=== PATIENT | male | born 1965 | race Caucasian/White ===

== ENCOUNTER → 2016-06-13 | Outpatient (CLI) | payer OTHER ==
[~2016-06-13] MED LIST: FISHOIL PO; LORA5SYP7 PO
[2016-06-13 13:33] LABS: BASO % 0.5 %; BASO ABS # 0.03 K/uL (0-0.2); COMPLETE YES; EOS % 1.6 %; HEMATOCRIT 40.7 % (42-52); LYMPH % 39.8 %; LYMPH ABS # 2.26 K/uL (1.2-3.4); MEAN CELL VOLUME 92.5 fL (80-100); MEAN CORPUSCULAR HEMOGLOBIN 32.3 pg (25-34); MEAN CORPUSCULAR HGB CONC 34.9 g/dl (32-36); MEAN PLATELET VOLUME 9.9 fL (7.4-10.4); MONO % 12.1 %; PLATELET COUNT 205 K/uL (130-400); WHITE BLOOD COUNT 5.68 K/uL (4.8-10.8)
[2016-06-13 14:14] LABS: CALCIUM 9.6 mg/dl (8.5-10.1)
[2016-06-13 14:22] LABS: ALT/SGPT 49 U/L (12-78); AST/SGOT 35 U/L (15-37); BLOOD UREA NITROGEN 29 mg/dl (7-18); BUN/CREATININE RATIO 26.6 (10-20); CARBON DIOXIDE 28 mmol/L (21-32); CHLORIDE 103 mmol/L (98-107); CHOLESTEROL 180 mg/dl (0-200); GLUCOSE 90 mg/dl (70-99); POTASSIUM 4.2 mmol/L (3.5-5.1); SODIUM 138 mmol/L (136-145); TRIGLYCERIDES 43 mg/dl (0-150); VERY LOW DENSITY LIPOPROT CALC 9 mg/dl
[2016-06-13 14:32] LABS: ALB/GLOB RATIO 1.4 (0.9-2); ALKALINE PHOSPHATASE 67 U/L (45-117); CHOLESTEROL/HDL RATIO 2.4; HDL CHOLESTEROL 76 mg/dl; LDL CHOLESTEROL CALCULATED 95 mg/dl; PROSTATE SPECIFIC ANTIGEN 0.789 ng/ml (0.000-4.000)
== END | disposition home or self-care (01) ==
LOC: C.LABBC 09:19
PROVIDERS: ATTEND Internal Medicine
DX: Z11.59 Encounter for screening for other viral diseases (principal); R35.0 Frequency of micturition; M54.9 Dorsalgia, unspecified; Z13.220 Encounter for screening for lipoid disorders; Z13.29 Encounter for screening for other suspected endocrine disorder; Z86.711 Personal history of pulmonary embolism

== ENCOUNTER 2019-12-06 22:48 | Observation (INO) ==
--- OUTSIDE RECORDS SUMMARY | 2019-12-06 22:51 | External Medical Summary | Continuity of Care Document ---
:1965 Author Name Teo Maceknzie Address Unavailable Unavailable , Care Team Providers Name Role Phone Unavailable Unavailable Unavailable RHINA QURESHI M.D., V Unavailable Unavailab le Unavailable Unavailable Unavailable Problems Allergy (995.3) (T78.40XA) History of Acute deep vein thrombosis of distal leg (453.42) (I82.4Z9) Status: Resolved Encounter for screening for lipoid disorders (V77.91) (Z13.2 20) Screening for diabetes mellitus (V77.1) (Z13.1) History of pulmonary embolism (V12.55) (Z86.711) Status: Resolved Backache (724.5) (M54.9) Allergic rhinitis (477.9) (J30.9) Urinary frequency (788.41) (R35.0) Prostate cancer screening (V76.44) (Z12.5) Thyroid disorder screen (V77.0) (Z13.29) Colon cancer screening (V76.51) (Z12.11) First degree atrioventricular block (426.11) (I44.0) Left ventricular hypertrophy (429.3) (I51.7) Allergies and Adverse Reactions No Known Drug Allergies (Allergy) Medications Aspirin 81 MG TABS; TAKE 1 TABLET DAILY. , M.D. Start: 28-Apr-2013 Refills: 0 Fish Oil 1000 MG Oral Capsule; TAKE 1 CAPSULE DAILY. , M.D. Refills: 0 Glucosamine-Chondroitin DS TABS; Take 1 tablet daily , M.D. Refills: 0 [facility] Loratadine 10 MG TABS; TAKE 1 TABLET DAILY. , M.D. Refills: 0 Procedures History of Shoulder Surgery Status: Comp leted Immunizations Influenza On: 28-Dec-2011 0:00 Influenza On: 21-Nov-2014 9:55 Lot #: [id number], SANOFI PASTEUR Tdap (Adacel) On: 21-Nov-2014 9:56 Lot #: [id number], SANOFI PASTEUR Flulaval Quadrivalent 0.5 ML Intramuscular Suspension Prefilled Syringe On: 05-Jan-2018 Family History Father Family history of Acute Myocardial Infarction (V17.3) Status : Active Mother Family history of Acute Myocardial Infarction (V17.3) Status : Active Social History - Smoking Status Never smoked tobacco Plan of Treatment Planned Observations Planned Goals not documented Results No Known Results Results not documented
--- NOTE | 2019-12-06 23:13 | Emergency Department Note ---
Impression & Plan Bilateral pulmonary embolism ED Provider Note Name: ERIKA RICHTER Age: 54 Sex: M Arrives Via: Ambulance Informant: Patient, ED Provider: Jose Hidalgo MD Chief Complaint: Left Shoulder Pain Impression: Bilateral Pulmonary Embolism Medical Decision Makin male with history of DVT/PE 10 years ago felt to be provoked arrives with left flank pain and left shoulder pain now completely resolved. EKG with diffuse T wave inversions similar to previous EKGs. CXR negative. Exam is completely benign on arrival though unusual presentation for just MSK pain (though did recently go horseback riding). Labs obtained which reveal elevated Dimer. Normal Trop and other labs unremarkable. CT A Done given history with elevated dimer. This revealed extensive bilateral PEs with possible infiltrate vs infarct. With concerns infiltrate in setting of diffuse PE, I did opt to test for Covid-19 which was fortunately negative. Extensive Hypercoag work-up sent. Patient agreeable to anticoagulation and heparin started IV. US bilateral leg obtained also reveals left calf DVT, though I will note on exam there is no swelling nor calf tenderness. This is a unprovoked DVT as no recent reason currently comes to his mind that would have lead to this. Triage/Nursing Notes reviewed by Me Additional history obtained from Differentials:Cardiac ischemia, aortic dissection, pulmonary embolism, pneumothorax, pneumonia, pericarditis, myocarditis, esophageal rupture, GERD, cholecystitis, pancreatitis, musculoskeletal, as well as other pathologies. Vital Signs: reviewed and remarkable for no significant abnormalities Interventions: NSS Bolus, Heparin bolus/gtt Labs:Reviewed and remarkable for elevated Dimer Imaging: [facility] Radiologist interpretation reviewed by me: "CTA CHEST: Multiple filling defects within right upper and bilateral lower lobe segmental and subsegmental branches, consistent with pulmonary emboli. Additional pulmonary embolus in the left upper lobe branch. No large saddle embolus. Mildly ectatic descending thoracic aorta measuring 3.8 cm is in diameter. No definite aortic dissection though contrast bolus through the thoracic aorta is suboptimal. Mild cardiomegaly. No intrathoracic lymphadenopathy. Mild left basilar infiltrate with small left pleural effusion. 11 mm right basilar nodule versus focus of consolidation along the hemidiaphragm. Radiologist: Justyn Andrade M.D." EKG:Per My Interpretation: Indication Left chest pain: NSR 63 bpm, qtc 411. No Ectopy. Diffuse T wave inversions with LV Hypertrophy. Compared to EKG June 04, 2019 and 08/07/11, no significant changes. Cardiac/Tele Monitoring: Cardiac Monitoring: An Order was placed for continuous cardiac monitoring. The monitor shows a rate of 60 with a normal sinus rhythm. Consults:Dr Wilkinson - JENN[facility] Hospitalist Plan: Disposition:Hospitalization. Condition: Good Prescriptions:none PDMP: n/a History of Present Illness:54 male arrives for evaluation of left chest pain. Patient notes he was having periodic mild left flank discomfort (03/05) over the last few day. Attributed it to mountain biking and horse back riding. He was going to bed tonight when he developed pressure like left shoulder pain. Radiated to left upper chest. Tight in nature. No other radiation. No nausea, vomiting, palpitations, diaphoresis, shortness of breath, syncope, nor other symptoms. Denies previous symptoms like this. Notes History of LVH and abnormal EKG but no previous cardiac issues otherwise. He took ASA 324mg PO. Pain is currently resolved. No trauma nor injury. Nothing made pain better nor worse. Denies pain with inspiration. History of DVT left leg of unknown etiology other than possibly the high boots he was wearing at that time 10 yrs ago. ROS: See above HPI for pertinent positives & negatives. A total of 10 systems reviewed and were otherwise negative. 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 . Does regular high energy exertion (12+ hr bike rides) Home Medications:Loratadine, ASA 81mg Daily Allergies:None Vitals:Blood Pressure: 115/82, Pulse 63, RR 20, T 37.6C, O2 95% on RA Physical Exam: GENERAL: Patient is well appearing and in no acute distress. EYES: No scleral icterus, unremarkable pupils. ENT: Mucous membranes moist, no nasal congestion. NECK: No masses appreciated, nomeningismus, trachea is midline. RESPIRATORY: No dyspnea. Clear to auscultation and equal bilaterally. No wheeze, no rhonchi. CARDIOVASCULAR: Regular rate and rhythm.No murmurs, rubs, gallops appreciated. GASTROINTESTINAL: Abdomen soft, non-tender, no peritonitis.Bowel sounds positive.No masses appreciated. BACK: No midline tenderness, no CVA tenderness EXTREMITIES: Normal motion all extremities, no cyanosis, no edema. NEUROLOGIC: Alert and oriented, no acute motor or sensory deficits, no focal weakness, cranial nerves grossly intact. SKIN: No rash, no jaundice, no diaphoresis. PSYCH: Appropriate GCS: 15 ED Course: Times/Reassessments: Multiple, stable, no symptoms, vitals stable Critical Care: I have personally spent 35 minutes of critical care time in the direct management of this patient. Extensive Pulmonary embolisms bilaterally requiring IV heparin. This was a life/limb threatening event. This 35 minutes is in excess of all separately billable procedures. 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 Current Living Situation: Spouse Feels Safe at Home: Yes Safety Concerns: Feels Safe At This Time Assistive Devices: None Allergies Allergies Allergy/AdvReac Type Severity Reaction Status Date / Time No Known Allergies Allergy Unverified 12/07/19 00:22 Home Meds Home Medications Medication Instructions Recorded Confirmed aspirin [Aspir-Low] 81 mg PO DAILY 12/07/19 12/07/19 loratadine [Claritin RediTabs] 5 mg PO DAILY PRN 12/07/19 12/07/19 Results & Data (ED) Vital Signs Vital Signs - 24 hr 12/06/19 23:00 12/06/19 23:31 12/07/19 00:00 Temperature 37.6 C H Temperature Source Oral Pulse Rate 65 64 63 Pulse Rate from SpO2 Sensor 65 62 Respiratory Rate 19 12 12 Respiratory Effort / Characteristics Non-Labored Spontaneous Respiratory Depth Normal Blood Pressure 138/103 H 115/83 121/81 Blood Pressure Mean 114 90 96 Pulse Oximetry 97 99 97 Oxygen Delivery Method Room Air Room Air Room Air Sepsis New/Unexplained Change in Mental Status N/A Sepsis Action Taken by Nursing No Action Required 12/07/19 00:30 12/07/19 01:01 12/07/19 01:30 Temperature Temperature Source Pulse Rate 63 66 69 Pulse Rate from SpO2 Sensor 63 67 69 Respiratory Rate 21 21 22 Respiratory Effort / Characteristics Respiratory Depth Blood Pressure 126/78 134/86 137/82 Blood Pressure Mean 91 113 94 Pulse Oximetry 100 100 98 Oxygen Delivery Method Room Air Room Air Room Air Sepsis New/Unexplained Change in Mental Status Sepsis Action Taken by Nursing 12/07/19 02:00 12/07/19 02:30 12/07/19 03:01 Temperature Temperature Source Pulse Rate 69 68 67 Pulse Rate from SpO2 Sensor 69 68 70 Respiratory Rate 19 24 16 Respiratory Effort / Characteristics Respiratory Depth Blood Pressure 133/81 133/79 123/83 Blood Pressure Mean 91 83 91 Pulse Oximetry 97 97 96 Oxygen Delivery Method Room Air Room Air Room Air Sepsis New/Unexplained Change in Mental Status Sepsis Action Taken by Nursing Laboratory Data Result diagrams: 12/06/19 22:40 12/06/19 22:40 Lab Results 12/06/19 12/06/19 12/06/19 Range/Units 22:40 22:40 22:40 WBC 9.64 (4.8-10.8) K/uL RBC 4.50 L (4.7-6.1) M/uL Hgb 14.6 (14.0-18.0) g/dL Hct 42.0 (42-52) % MCV 93.3 (80-100) fL MCH 32.4 (25-34) pg MCHC 34.8 (32-36) g/dL RDW Std Deviation 41.3 (36.4-46.3) fL RDW Coeff of Yaz 12.3 (11.5-14.5) % Plt Count 211 (130-400) K/uL MPV 9.2 (7.4-10.4) fL Immature Gran % (Auto) 0.1 % Neut % (Auto) 54.3 % Lymph % (Auto) 29.5 % [place] % (Auto) 13.9 % Eos % (Auto) 1.9 % Baso % (Auto) 0.3 % Neut # (Auto) 5.24 (1.4-6.5) K/uL Lymph # (Auto) 2.84 (1.2-3.4) K/uL [place] # (Auto) 1.34 H (0.11-0.59) K/uL Eos # (Auto) 0.18 (0-0.5) K/uL Baso # (Auto) 0.03 (0-0.2) K/uL Immature Gran # (Auto) 0.01 (0.00-0.02) K/uL APTT (21.0-31.0) Seconds PTT Ratio D-Dimer 2010 H* (0-500) ug/L FEU Sodium 139 (136-145) mmol/L Potassium 3.9 (3.5-5.1) mmol/L Chloride 104 (98-107) mmol/L Carbon Dioxide 30 (21-32) mmol/L Anion Gap 5.0 (3-11) BUN 25 H (7-18) mg/dl Creatinine 1.21 (0.6-1.4) mg/dl Est Cr Clr Drug Dosing 63.0 ml/min Est GFR ( Amer) 78.2 Est GFR (Non-Af Amer) 67.5 BUN/Creatinine Ratio 20.3 H (10-20) Glucose 92 (70-99) mg/dl Calcium 9.4 (8.5-10.1) mg/dl Total Bilirubin 0.4 (0.2-1) mg/dl Direct Bilirubin 0.2 (0-0.2) mg/dl AST 22 (15-37) U/L ALT 32 (12-78) U/L Alkaline Phosphatase 86 (45-117) U/L Troponin I < 0.015 (0-0.045) ng/ml Total Protein 7.5 (6.4-8.2) gm/dl Albumin 3.8 (3.4-5.0) gm/dl Lipase 136 (73-393) U/L Urine Color Urine Appearance (Clear) Urine pH (4.5-7.5) Ur Specific [place] (1.000-1.030) Urine Protein (Negative) Urine Glucose (UA) (Negative) Urine Ketones (Negative) Urine Blood (Negative) Urine Nitrite (Negative) Urine Bilirubin (Negative) Urine Urobilinogen (Negative) Ur Leukocyte Esterase (Negative) COVID-19 Eval Order COVID-19 PCR (Negative) 12/06/19 12/06/19 12/07/19 Range/Units 22:40 23:54 01:01 WBC (4.8-10.8) K/uL RBC (4.7-6.1) M/uL Hgb (14.0-18.0) g/dL Hct (42-52) % MCV (80-100) fL MCH (25-34) pg MCHC (32-36) g/dL RDW Std Deviation (36.4-46.3) fL RDW Coeff of Yaz (11.5-14.5) % Plt Count (130-400) K/uL MPV (7.4-10.4) fL Immature Gran % (Auto) % Neut % (Auto) % Lymph % (Auto) % [place] % (Auto) % Eos % (Auto) % Baso % (Auto) % Neut # (Auto) (1.4-6.5) K/uL Lymph # (Auto) (1.2-3.4) K/uL [place] # (Auto) (0.11-0.59) K/uL Eos # (Auto) (0-0.5) K/uL Baso # (Auto) (0-0.2) K/uL Immature Gran # (Auto) (0.00-0.02) K/uL APTT 26.3 (21.0-31.0) Seconds PTT Ratio 0.9 D-Dimer (0-500) ug/L FEU Sodium (136-145) mmol/L Potassium (3.5-5.1) mmol/L Chloride (98-107) mmol/L Carbon Dioxide (21-32) mmol/L Anion Gap (3-11) BUN (7-18) mg/dl Creatinine (0.6-1.4) mg/dl Est Cr Clr Drug Dosing ml/min Est GFR ( Amer) Est GFR (Non-Af Amer) BUN/Creatinine Ratio (10-20) Glucose (70-99) mg/dl Calcium (8.5-10.1) mg/dl Total Bilirubin (0.2-1) mg/dl Direct Bilirubin (0-0.2) mg/dl AST (15-37) U/L ALT (12-78) U/L Alkaline Phosphatase (45-117) U/L Troponin I (0-0.045) ng/ml Total Protein (6.4-8.2) gm/dl Albumin (3.4-5.0) gm/dl Lipase (73-393) U/L Urine Color Yellow Urine Appearance Clear (Clear) Urine pH 6.0 (4.5-7.5) Ur Specific [place] 1.007 (1.000-1.030) Urine Protein Negative (Negative) Urine Glucose (UA) Negative (Negative) Urine Ketones Negative (Negative) Urine Blood Negative (Negative) Urine Nitrite Negative (Negative) Urine Bilirubin Negative (Negative) Urine Urobilinogen Negative (Negative) Ur Leukocyte Esterase Negative (Negative) COVID-19 Eval Order Covid19 Done at [facility] COVID-19 PCR (Negative) 12/07/19 Range/Units 01:01 WBC (4.8-10.8) K/uL RBC (4.7-6.1) M/uL Hgb (14.0-18.0) g/dL Hct (42-52) % MCV (80-100) fL MCH (25-34) pg MCHC (32-36) g/dL RDW Std Deviation (36.4-46.3) fL RDW Coeff of Yaz (11.5-14.5) % Plt Count (130-400) K/uL MPV (7.4-10.4) fL Immature Gran % (Auto) % Neut % (Auto) % Lymph % (Auto) % [place] % (Auto) % Eos % (Auto) % Baso % (Auto) % Neut # (Auto) (1.4-6.5) K/uL Lymph # (Auto) (1.2-3.4) K/uL [place] # (Auto) (0.11-0.59) K/uL Eos # (Auto) (0-0.5) K/uL Baso # (Auto) (0-0.2) K/uL Immature Gran # (Auto) (0.00-0.02) K/uL APTT (21.0-31.0) Seconds PTT Ratio D-Dimer (0-500) ug/L FEU Sodium (136-145) mmol/L Potassium (3.5-5.1) mmol/L Chloride (98-107) mmol/L Carbon Dioxide (21-32) mmol/L Anion Gap (3-11) BUN (7-18) mg/dl Creatinine (0.6-1.4) mg/dl Est Cr Clr Drug Dosing ml/min Est GFR ( Amer) Est GFR (Non-Af Amer) BUN/Creatinine Ratio (10-20) Glucose (70-99) mg/dl Calcium (8.5-10.1) mg/dl Total Bilirubin (0.2-1) mg/dl Direct Bilirubin (0-0.2) mg/dl AST (15-37) U/L ALT (12-78) U/L Alkaline Phosphatase (45-117) U/L Troponin I (0-0.045) ng/ml Total Protein (6.4-8.2) gm/dl Albumin (3.4-5.0) gm/dl Lipase (73-393) U/L Urine Color Urine Appearance (Clear) Urine pH (4.5-7.5) Ur Specific [place] (1.000-1.030) Urine Protein (Negative) Urine Glucose (UA) (Negative) Urine Ketones (Negative) Urine Blood (Negative) Urine Nitrite (Negative) Urine Bilirubin (Negative) Urine Urobilinogen (Negative) Ur Leukocyte Esterase (Negative) COVID-19 Eval Order COVID-19 PCR NEGATIVE (Negative) Administered Medications Heparin Sodium/Dextrose (Heparin Sodium/Dextrose) 25,000 units in 500 mls @ 24 mls/hr IV .[id number] [facility]; Protocol Stop: 01/06/20 01:44 Last Admin: 12/07/19 02:18 Dose: 1,200 units/hr, 24 mls/hr Documented by: [id number] Cosigned by: [id number] Discontinued Medications Heparin Sodium (Porcine) (Heparin Sod 5,000 Unit/0.5 Ml Vial) Confirm Administered Dose 5,000 units .ROUTE .STK-MED ONE Stop: 12/07/19 02:11 Last Admin: 12/07/19 02:18 Dose: 5,000 units Documented by: [id number] Cosigned by: [id number] Heparin Sodium/Dextrose (Heparin Iv Standard With Bolus) 1 ea IV NOW STA; P rotocol Stop: 12/07/19 01:39 Last Admin: 12/07/19 02:18 Dose: Not Given Documented by: [id number] Sodium Chloride (Nss 1000ml) 1,000 mls @ 999 mls/hr IV .Q1H1M ONE Stop: 12/07/19 00:49 Last Infusion: 12/07/19 02:15 Dose: 0 mls/hr Documented by: [id number] Admin: 12/07/19 00:17 Dose: 999 mls/hr Documented by: [id number] Ioversol (Optiray 320 125ml) 125 ml IV ONCE ONE Stop: 12/07/19 00:22 Last Admin: 12/07/19 00:21 Dose: 109 ml Documented by: [id number] Discharge Plan Visit Data Chief Complaint: Shoulder Pain Stated Complaint: CARDIAC SYMPTOMS ED Provider: Jose Hidalgo Discharge Problem: Bilateral pulmonary embolism Patient Disposition: Admitted As Inpatient Discharge Instructions Interventions: ED Discharge Assessment Last Done: 12/07/19 04:00
[2019-12-06 23:33] LABS: Basophils # (auto) 0.03 K/uL (0-0.2); Basophils % (auto) 0.3 %; Eosinophils # (auto) 0.18 K/uL (0-0.5); Eosinophils % (auto) 1.9 %; Hemoglobin 14.6 g/dL (14.0-18.0); Immature Granulocytes # (auto) 0.01 K/uL (0.00-0.02); Immature Granulocytes % (auto) 0.1 %; Lymphocytes # (auto) 2.84 K/uL (1.2-3.4); Lymphocytes % (auto) 29.5 %; Mean Corpuscular Hemoglobin 32.4 pg (25-34); Mean Corpuscular Hgb Conc 34.8 g/dL (32-36); Mean Corpuscular Volume 93.3 fL (80-100); Mean Platelet Volume 9.2 fL (7.4-10.4); Monocytes # (auto) 1.34 K/uL (0.11-0.59); Monocytes % (auto) 13.9 %; Neutrophils # (auto) 5.24 K/uL (1.4-6.5); Neutrophils % (auto) 54.3 %; Platelet Count 211 K/uL (130-400); RDW Coefficient of Variation 12.3 % (11.5-14.5); RDW Standard Deviation 41.3 fL (36.4-46.3); White Blood Count 9.64 K/uL (4.8-10.8)
[2019-12-06 23:41] LABS: Alanine Aminotransferase 32 U/L (12-78); Albumin Level 3.8 gm/dl (3.4-5.0); Aspartate Aminotransferase 22 U/L (15-37); BUN Creatinine Ratio 20.3 (10-20); Bilirubin Direct 0.2 mg/dl (0-0.2); Blood Urea Nitrogen 25 mg/dl (7-18); Calcium 9.4 mg/dl (8.5-10.1); Carbon Dioxide 30 mmol/L (21-32); Chloride 104 mmol/L (98-107); Est GFR (African American) 78.2; Est GFR (Non-African American) 67.5; Glucose 92 mg/dl (70-99); Lipase 136 U/L (73-393); Potassium 3.9 mmol/L (3.5-5.1); Sodium 139 mmol/L (136-145)
[2019-12-06 23:45] LABS: Alkaline Phosphatase 86 U/L (45-117); Bilirubin,Total 0.4 mg/dl (0.2-1); Total Protein 7.5 gm/dl (6.4-8.2); Troponin I < 0.015 ng/ml (0-0.045)
[2019-12-06 23:48] LABS: D Dimer 2010 ug/L FEU (0-500)
[2019-12-06] MEDS ORDERED: SODIUM CHLORIDE 0.9% 1000ML 1,000 ML IV ONE (23:49)
[2019-12-07] MEDS ORDERED: OPTIRAY 320 125ml IV ONE (00:21)
[2019-12-07 00:23] LABS: Appearance Urine Clear (Clear); Bilirubin Urine Negative (Negative); Blood Urine Negative (Negative); Color Urine Yellow; Glucose Urine UA Negative (Negative); Ketones Urine Negative (Negative); Leukocyte Esterase Urine Negative (Negative); Nitrite Urine Negative (Negative); Protein Urine Negative (Negative); Specific Gravity Urine 1.007 (1.000-1.030); Urobilinogen Urine Negative (Negative)
[2019-12-07] MEDS ORDERED: HEPARIN SODIUM/DEXTROSE 25,000 UNITS/500 ML BAG IV SCH (01:45)
[2019-12-07] MEDS ORDERED: HEPARIN SOD 5,000 UNIT/0.5 ML VIAL ONE (02:10)
[2019-12-07 02:12] LABS: Partial Thromboplastin Ratio 0.9; Partial Thromboplastin Time 26.3 Seconds (21.0-31.0)
--- NOTE | 2019-12-07 03:14 | History & Physical Report ---
Date of Service December 07, 2019 Assessment & Plan (1) Bilateral pulmonary embolism: Bilateral PE Breathing well vitals stable Heparin drip, ideally would like to start patient on eliquis given patient's previous difficulty with warfarin Will check echo given history of PE's and multiple clot burden to check for signs of right heart strain No risk factors for provoked DVT, will check secondary causes patient will likely require lifelong anticoagulation Doppler's b/l lower extremities ordered F/E/N: regular Diet DVT PPx: heparin drip Dispo: Admit for tele for anticoagulation and transition to DOAC and echo and lower extremity dopplers Full Code History of Present Illness Chief Complaint: Bilateral PE's Primary Care Provider: Aziza Rodrigues MD Alvin Ascencio is a 54 year old man with a past medical history significant for previous VTE 10 years ago (thought to be provoked at that time) who presented to ED tonight with chest and flank pain that patient was concerned was a heart attack. He noticed this late tonight while lying in bed, pain seemed to be positional, worse while lying down. Did not feel short of breath, chest pain, no palpitations, no cough, no fever, chills sweats, no sick contacts, no GI symptoms, no skin rashes. He has no other symptoms and his pain has now totally resolved. on presentation to ED patient was found to have vitals WNL, labwork significant for an elevated D Dimer. CXR normal, CTA showing multiple filling deficits on the right and one on the left. no saddle emboli. patient was given one L nSS and started on heparin bolus and drip. 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 His previous PE was 10 years ago when he was in the , he was wearing boots with the pants tucked in very tight around his calf and had to sit for long periods of time at a desk without getting up. This was thought to be provoked, he did see a drying can worker but is not sure what labwork was done. He was on warfarin for six months and then started on baby aspirin daily and has not had any issues since then. He is otherwise very healthy and besides the ASA he only takes claritin tabs PRn for allergies. He also has a history of a torn rotator cuff and had sukumar surgically repaired several years ago. Lives with and 11 year old child, no other concerns at present. Allergies Allergy/AdvReac Type Severity Reaction Status Date / Time No Known Allergies Allergy Unverified 12/07/19 00:22 Home Medications Home Medications Medication Instructions Recorded Confirmed Type Claritin RediTabs 5 mg PO DAILY PRN 12/07/19 12/07/19 History apixaban [Eliquis] 5 mg PO BID #1 ea 12/07/19 Rx Past Med/Surg History Social History Smoking Status: Never smoker Hx Alcohol Use: Yes Alcohol type: beer Hx Substance Use: No Preferred Language: Taiwanese Communication Ability: Effective Supervisor [employer] Required: No Current Living Situation: Spouse Feels Safe at Home: Yes Assistive Devices: None Review of Systems Review of Systems: All systems reviewed & are unremarkable except as noted in HPI & below Physical Exam Constitutional: WD/WN, vitals as above well nourished; no acute distress and not ill appearing Eyes: PERRL, conjunctivae normal, anicteric sclerae ENMT: external ear and nose normal, oropharynx normal Respiratory: normal respiratory effort, lungs clear to auscultation normal respiratory effort; no respiratory distress Cardiovascular: Rate/Rhythm: regular rate and regular rhythm; not tachycardic Heart Sounds: normal S1 and normal S2; no click, no gallop, no murmur and no cardiac rub Palpation: normal PMI Vessels: normal peripheral pulses and dorsalis pedis pulses present Gastrointestinal (Abdomen): normal bowel sounds, soft, nontender, no hepatosplenomegaly Inspection/Auscultation: abdomen normal to inspection; abdomen not distended Skin: no rashes, warm and dry Results & Data Results & Data ([facility]) Vital Signs (Past 12 Hours) Vital Signs Temp Pulse Resp BP Pulse Ox 12/07/19 02:30 68 24 133/79 97 12/07/19 02:00 69 19 133/81 97 12/07/19 01:30 69 22 137/82 98 12/07/19 01:01 66 21 134/86 100 12/07/19 00:30 63 21 126/78 100 12/07/19 00:00 63 12 121/81 97 12/06/19 23:31 64 12 115/83 99 12/06/19 23:00 37.6 C H 65 19 138/103 H 97 Supervising Physician Co-Signing Physician Notes Attending addendum: I have physically seen this patient, have supervised the medical residents activities, and agree with the H&P unless as otherwise noted. Assessment and Plan: Bilateral pulmonary embolism/right upper lobe/bilateral lower lobes and left upper lobe- Placed on heparin drip standard dose per protocol. Difficulty with warfarin in the past. Will likely be a better Xarelto/Eliquis candidate. Order bilateral lower extremity venous Dopplers Remaining orders and notations as noted Resident Activity Tracking Resident Involvement: Resident Care Provided Care Provided: Adult Hospital Medicine
[2019-12-07] MEDS ORDERED: ALUMINUM/MAGNESIUM SUSP 30 ML UDC PO PRN (04:12)
[2019-12-07] MEDS ORDERED: ACETAMINOPHEN 325 MG TAB PO PRN (04:12)
[2019-12-07] MEDS ORDERED: LORATADINE 10 MG TAB PO PRN (04:32)
--- NOTE | 2019-12-07 07:06 | Ultrasound Report ---
US venous doppler LE BI CLINICAL HISTORY: pulmonary embolisms COMPARISON STUDY: 04/28/2013 FINDINGS: Grayscale, color-flow, and spectral Doppler waveform analysis was performed. On the right, no thrombus is visualized in the common femoral, superficial femoral, or popliteal vein s. The proximal trifurcation veins appeared patent. The left, no thrombus is visualized in the left common femoral superficial femoral or popliteal veins . The anterior and posterior tibial veins appeared patent. There was thrombus within the left peronea l veins. IMPRESSION: 1. No evidence of right lower extremity DVT 2. Left lower extremity DVT with involvement of the peroneal veins. No evidence of [id number] thr ombus ACT 112: Negative or not required by law. Electronically signed by: Landen Esteban M.D. 12/07/2019 7:05 AM
--- NOTE | 2019-12-07 07:07 | XRay Report ---
XR chest 1V portable CLINICAL HISTORY: left chest pain COMPARISON STUDY: 08/06/2011 FINDINGS: The heart is the upper limits of normal in size. There is no failure. There is no focal pul monary consolidation. There are no pleural effusions. There is no pneumothorax.[ IMPRESSION: No active disease in the chest. ACT 112: Negative or not required by law. Electronically signed by: Landen Esteban M.D. 12/07/2019 7:05 AM
--- NOTE | 2019-12-07 08:07 | CT Scan Report ---
CHEST CTA for PULMONARY ARTERIES CT DOSE: 388.31 mGy.cm HISTORY: Left upper chest pain, elevated dimer TECHNIQUE: Multiaxial CT images of the chest were performed following the intravenous administration of contrast to evaluate the pulmonary arteries. Maximal intensity projection images were also obtaine d. A dose lowering technique was utilized adhering to the principles of ALARA. COMPARISON STUDY: Chest CTA 08/06/2011. FINDINGS: Normal caliber thoracic aorta with no evidence for dissection. Trace left pleural effusion. There are few scattered segmental and subsegmental pulmonary emboli seen within the bilateral upper and bilateral lower lobes. There is mild enlargement of the right ventricle with mild flattening of t he interventricular septum. This raises the possibility of mild right-sided heart strain. No mediasti nal hilar lymphadenopathy. Normal caliber esophagus. No suspicious lytic or blastic osseous lesions. The liver, spleen, adrenal glands are within normal limits. No pneumothorax. The central airways are patent. Peripheral groundglass densities within the left lung base posteriorly. This favors pulmonary infarcts. Small peripheral wedge-shaped consolidation within the base of the right lower lobe on lillian [address] 84 which also favors a pulmonary infarct. IMPRESSION: 1. Scattered bilateral segmental/subsegmental pulmonary emboli as described above. 2. Peripheral opacities within the lung bases, left greater than right, likely representing pulmonary infarcts. 3. Trace left pleural effusion. 4. Mild enlargement of the right ventricle with mild flattening of the interventricular septum. This raises the possibility of mild right-sided heart strain. This finding was called/faxed to the referri physician following dictation. ACT 112: Negative or not required by law. Electronically signed by: Demetri Sanchez M.D. 12/07/2019 8:05 AM
[2019-12-07 08:42] LABS: Partial Thromboplastin Ratio 2.9
[2019-12-07] MEDS ORDERED: ASPIRIN 81 MG ECTAB PO SCH (09:00)
[2019-12-07] MEDS ORDERED: APIXABAN 5 MG TABLET PO SCH (09:00)
[2019-12-07 09:04] LABS: Partial Thromboplastin Time 80.7 Seconds (21.0-31.0)
--- NOTE | 2019-12-07 10:32 | Discharge Summary ---
Date of Service December 07, 2019 Admission HPI Per Admitting Provider Alvin Ascencio is a 54 year old man with a past medical history significant for previous VTE 10 years ago (thought to be provoked at that time) who presented to ED tonight with chest and flank pain that patient was concerned was a heart attack. He noticed this late tonight while lying in bed, pain seemed to be positional, worse while lying down. Did not feel short of breath, chest pain, no palpitations, no cough, no fever, chills sweats, no sick contacts, no GI symptoms, no skin rashes. He has no other symptoms and his pain has now totally resolved. on presentation to ED patient was found to have vitals WNL, labwork significant for an elevated D Dimer. CXR normal, CTA showing multiple filling deficits on the right and one on the left. no saddle emboli. patient was given one L nSS and started on heparin bolus and drip. 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 His previous PE was 10 years ago when he was in the , he was wearing boots with the pants tucked in very tight around his calf and had to sit for long periods of time at a desk without getting up. This was thought to be provoked, he did see a steel burner but is not sure what labwork was done. He was on warfarin for six months and then started on baby aspirin daily and has not had any issues since then. He is otherwise very healthy and besides the ASA he only takes claritin tabs PRn for allergies. He also has a history of a torn rotator cuff and had sukumar surgically repaired several years ago. Lives with and 11 year old child, no other concerns at present. Admission Exam Per Admitting Provider Constitutional: WD/WN, vitals as above well nourished; no acute distress and not ill appearing Eyes: PERRL, conjunctivae normal, anicteric sclerae ENMT: external ear and nose normal, oropharynx normal Respiratory: normal respiratory effort, lungs clear to auscultation normal respiratory effort; no respiratory distress Cardiovascular: Rate/Rhythm: regular rate and regular rhythm; not tachycardic Heart Sounds: normal S1 and normal S2; no click, no gallop, no murmur and no cardiac rub Palpation: normal PMI Vessels: normal peripheral pulses and dorsalis pedis pulses present Gastrointestinal (Abdomen): normal bowel sounds, soft, nontender, no hepatosplenomegaly Inspection/Auscultation: abdomen normal to inspection; abdomen not distended Skin: no rashes, warm and dry Principal Diagnosis pulmonary embolism Discharge Exam Constitutional Well appearing male resting comfortably in bed in no acute distress Eyes PERRL, conjunctivae normal, anicteric sclerae Respiratory Clear to auscultation bilaterally, no wheezes, rales or rhonchi. Symmetrical chest wall expansion. Cardiovascular Regular rate and rhythm, no murmurs, rubs or extra heart sounds. No peripheral edema. Gastrointestinal (Abdomen) normal bowel sounds, soft, nontender, no hepatosplenomegaly Skin no rashes, warm and dry Psychiatric A+Ox3, euthymic affect Discharge Data Allergies Allergy/AdvReac Type Severity Reaction Status Date / Time No Known Allergies Allergy Unverified 12/07/19 00:22 Consultations 12/07/19 01:03 ED Decision to Admit Stat 12/07/19 04:12 Consult Case Management - Discharge Planning Routine Ordered Studies 12/06/19 23:49 CT angio chest PE protocol Urgent 12/07/19 02:34 US venous doppler [facility] Urgent Hospital Course (1) Bilateral pulmonary embolism: 54 y/o past medical history of PE ~10 years ago who presented with L shoulder and L flank pain. 1) Bilateral PE - Found to have elevated D.dimer of 2009, CTA showing bilateral filling deficits without evidence of saddle PE. Trops negative x1, bilateral lower extremity venous doppler negative for DVT -No oxygen requirement, hemodynamically stable -Treated with heparin drip while inpatient -Discharged on Eliquis 10mg BID for one week, 5mg BID indefinitely -F/U hypercoagulability labs drawn while inpatient Total Time Total Time Spent Total Time Spent (In Minutes): >30 Discharge Plan Discharge Items Patient Disposition: Home - Self-Care Reason For Visit: BILATERAL PE'S Discharge Diagnosis: Bilateral pulmonary emboli Activity: Resume your previous activity Non-emergency contact: Primary Care Provider Call non-emergency contact if: you have any medication questions and your symptoms worsen Follow-up/Referrals: Aziza Rodrigues MD [Primary Care Provider] - 12/14/19 12:00 pm (WILL SEE PA) Diet: Regular Addtl Attending Provider Instructions: You were admitted for blood clots in your lungs, also known as pulmonary emboli. We treated you with blood thinners. We have sent a prescription for a new medicine, eliquis, to your pharmacy: * Take 10mg eliquis twice daily for one week. * Then, take 5mg eliquis twice daily, indefinitely. * The Eliquis Start Pack we sent in will cover you for the first month (10mg twice daily for the first week, then 5mg twice daily for the rest of the month). Please follow up with your primary care physician within one week. This is very important in order for you to get the prescription for the eliquis you will need after the starter pack is complete. If you have any questions or concerns, discuss this with your primary care physi deb. If you experience an emergency, please call 911 immediately or go to the nearest emergency department. Pending Studies at Discharge: No Stand-Alone Forms: My [facility] [employer], Smoking Cessation Medications and DC Order Prescriptions: New Eliquis 5 mg (74 tabs) tablets,dose pack 5 mg PO BID Qty: 1 RF: 0 Continued Claritin RediTabs 5 mg Tablet,Disintegrating 5 mg PO DAILY PRN (Reason: Allergy Symptoms) RF: 0 Discontinued aspirin [Aspir-Low] 81 mg Tablet,Delayed Release (Dr/Ec) 81 mg PO DAILY RF: 0 Discharge Orders: Discharge Order (Routine); Ordered 12/07/19 Ordered By: Deric Martínez/Other Patient Handouts: Complications of Deep Vein Thrombosis, Pulmonary Embolism, DVT Dc, Embolism Pulmonary Dc Admission Data Admit Date/Time: 12/07/19 03:15 Attending Provider: Keo Mcnamara Admit Provider: Ran Lam Primary Care Provider: Aziza Rodrigues V. Other Providers: Augie Wilkinson Other Interventions: Discharge Summary Assessment (RN) Last Done: 12/07/19 11:30 Supervising Physician Co-Signing Physician Notes I personally examined the patient and verified all parker points of history and exam, discussed case, and agree with decision making with Iam Faith MS4. feelign ok feeling up to going home. extensive discussion on PE, treatment, ongoing treatment, risks/benefits on anticoagulation, etc vitals noted nad heent nc at mmm breathing unlabored no accessory muscles good effort skin no rashes no pallor or icterus neuro no focal deficits acute VTE - PE and acute DVT L peroneal veins - PESI very low risk, appearing comfortable and stable for home. eliquis 10mg bid x7 days then 5mg bid / indefinite anticoagulation. stable for home, otherwise as above
--- NOTE | 2019-12-07 14:02 | Electrocardiogram Report ---
Test Reason : Blood Pressure : / mmHG Vent. Rate : 063 BPM Atrial Rate : 063 BPM P-R Int : 202 ms QRS Dur : 088 ms QT Int : 402 ms P-R-T Axes : 070 059 -86 degrees QTc Int : 411 ms Normal sinus rhythm Possible Left atrial enlargement Left ventricular hypertrophy with repolarization abnormality Abnormal ECG When compared with ECG of 07-AUG-2011 06:44, No significant change was found Confirmed by Isaak Krishna ([id number]) on 12/07/2019 2:01:43 PM Referred By: REFERRED SELF Confirmed By:Isaak Krishna
--- NOTE | 2019-12-07 14:18 | Electrocardiogram Report ---
Test Reason : Blood Pressure : / mmHG Vent. Rate : 069 BPM Atrial Rate : 069 BPM P-R Int : 192 ms QRS Dur : 094 ms QT Int : 402 ms P-R-T Axes : 073 055 259 degrees QTc Int : 430 ms Normal sinus rhythm Left ventricular hypertrophy with repolarization abnormality Abnormal ECG When compared with ECG of 06-DEC-2019 22:53, (unconfirmed) No significant change was found Confirmed by Isaak Krishna ([id number]) on 12/07/2019 2:17:40 PM Referred By: REFERRED SELF Confirmed By:Isaak Krishna
--- NOTE | 2019-12-07 18:02 | Billing Data ---
Date of Service December 07, 2019 Coding Level of Care Code D/C Day Management >30 mins
--- NOTE | 2019-12-08 05:04 | Billing Data ---
Date of Service December 08, 2019 Coding Level of Care Code 66067 OBS Care - Level 3
[2019-12-12 00:40] LABS: Anti Cardiolipin Ab IgG <14 GPL; Anti Cardiolipin Ab IgM <12 MPL; Anti-Thrombin III Activity 88 % normal (80-135); B2 Glycoprotein IgG <9 SGU (<=20); B2 Glycoprotein IgM <9 SMU (<=20); PTT LA Screen 34 sec (<=40); Protein S Functional(Activity) 79 % (70-150)
== END 2019-12-07 12:27 | disposition home or self-care (01) ==
LOC: ED 22:48 → 2S 12-07 03:15 → SUATTDRO 12-07 03:15 → INTOOBSV 12-07 03:15 → 2S 12-07 04:00